=== PATIENT | male | born 1955 | race Caucasian/White ===

== ENCOUNTER 2024-11-05 05:18 | Emergency (ER) | payer MEDICARE ==
[2024-11-05] VITALS (8 sets, daily range): BP systolic 109–144; BP diastolic 68–98
[2024-11-05] MEDS ORDERED: DICYCLOMINE HCL 20 MG/2 ML VIAL IM ONE (05:35)
[2024-11-05] MEDS ORDERED: FAMOTIDINE 10MG/ML 2ML SDV IV ONE (05:35)
[2024-11-05] MEDS ORDERED: SODIUM CHLORIDE 0.9% 1,000 ML IV ONE ×2 (05:35→06:55)
[2024-11-05] MEDS ORDERED: ONDANSETRON HCl 4 MG/2 ML SDV IV ONE (05:35)
[2024-11-05 06:06] LABS: BASO% 0.5 % (0-3); EOS% 0.4 % (0-8); HEMATOCRIT 35.3 % (39.0-50.0); IMMATURE GRANULOCYTES 0.2 % (0.0-5.0); LYMPH% 8.9 % (15-41); MEAN CELL VOLUME 96.7 fL CALC (80.0-100.0); MEAN CORPUSCULAR HGB 32.9 pG CALC (26.0-32.0); MONO% 7.9 % (2-13); NEUT# 6.73 thou/uL (1.82-7.42); NEUT% 82.1 % (42-76); RED BLOOD COUNT 3.65 mill/uL (4.70-6.10); RED CELL DISTRI WIDTH 15.9 % (11.5-15.5)
[2024-11-05 06:17] LABS: ALBUMIN 3.7 g/dL (3.2-5.0); CREATININE 0.5 mg/dL (0.7-1.3); POTASSIUM 4.1 mmol/l (3.5-5.1); TOTAL PROTEIN 7.4 g/dL (6.3-8.2)
[2024-11-05 07:55] LABS: URINE BLOOD DIPSTICK Negative (NEGATIVE); URINE CLARITY Clear; URINE GLUCOSE - DIPSTICK Negative (NEGATIVE); URINE KETONE Negative (NEGATIVE); URINE LEUK ESTERASE Negative (Negative); URINE NITRITE - DIPSTICK Negative (Negative); URINE PH 5.5 (4.5-8.0); URINE PROTEIN - DIPSTICK 30 mg/dL (NEG-TRACE); URINE SPECIFIC GRAVITY >=1.030; URINE UROBILINOGEN - DIPSTICK 0.2 E.U./dL (0.2)
[2024-11-05 08:10] LABS: URINE COLOR Dark yellow
[2024-11-05 08:12] LABS: URINE MUCUS FEW hpf (NONE-FEW); URINE RBC 0-2 RBC/hpf (0-5); URINE SQUAMOUS EPITHELIAL CELL FEW EPI/hpf (0-FEW); URINE WBC 0-2 WBC/hpf (0-5)
[2024-11-05] MEDS ORDERED: ZOFRAN4 MG/TAB PO (09:40)
== END 2024-11-05 09:58 | disposition home or self-care (01) ==
LOC: ED 05:18
PROVIDERS: Emergency Medicine
DX: R11.2 Nausea with vomiting, unspecified (principal); I10 Essential (primary) hypertension; T46.5X6A Underdosing of other antihypertensive drugs, initial encounter; Z91.128 Patient's intentional underdosing of medication regimen for other reason
CPT/HCPCS: J0500; J2405